=== PATIENT | female | born 1990 ===

== ENCOUNTER 2020-05-01 00:34 | Inpatient (IN) | payer MEDICAID ==
[2020-05-01] MEDS ORDERED: Ondansetron 4 MG/2 ML SDV IVPUSH PRN (01:06)
[2020-05-01] MEDS ORDERED: Sodium Chloride 0.9% 10 ML SDV IV PRN (01:06)
[2020-05-01] MEDS ORDERED: Misoprostol 200 MCG Tab PO PRN (01:06)
[2020-05-01] MEDS ORDERED: Lidocaine 1% 50 ML MDV INJECT PRN (01:06)
[2020-05-01] MEDS ORDERED: Nalbuphine 10 MG/1 ML Vial IVPUSH PRN (01:06)
[2020-05-01] MEDS ORDERED: Sodium Chloride 0.9% 10 ML Syringe FLUSH PRN (01:06)
[2020-05-01] MEDS ORDERED: Terbutaline 1 MG/ML SDV SUBCUT PRN (01:06)
[2020-05-01] MEDS ORDERED: Tranexamic Acid 1,000 MG in Sodium Chloride 0.9% 100 ML IV PRN (01:06)
[2020-05-01] MEDS ORDERED: Sodium Chloride 0.9% 2.5 ML Syringe FLUSH PRN (01:06)
[2020-05-01] MEDS ORDERED: Water For Irrigation,Sterile 1,000 ML Container IRR PRN (01:06)
[2020-05-01] MEDS ORDERED: Butorphanol 1 MG/ML SDV IVPUSH PRN (01:06)
[2020-05-01] MEDS ORDERED: Methylergonovine 0.2 MG/1 ML Amp IM PRN (01:06)
[2020-05-01] MEDS ORDERED: Carboprost Tromethamine 250 MCG/1 ML Amp IM PRN (01:06)
[2020-05-01] MEDS ORDERED: Oxytocin/0.9 % Sodium Chloride 30 UNIT/500 ML BAG IV SCH ×2 (01:15)
[2020-05-01] MEDS: Lactated Ringers 1,000 ML IV SCH ×3 (03:22→07:26)
--- NOTE | 2020-05-01 03:31 | PCM.PREANE ---
Preanesthetic Assessment - Anesthesia/Transfusion/Family Hx Anesthesia History: No Prior Anesthesia Family History of Anesthesia Reaction: No - Review of Systems General: No Symptoms Pulmonary: No Symptoms Cardiovascular: No Symptoms Gastrointestinal: No Symptoms Neurological: No Symptoms Other: Reports: None - Physical Assessment NPO Status Date: 05/01/20 NPO Status Time: 03:30 (water) Height: 1.63 m Weight: 86.636 kg ASA Class: 2 Mental Status: Alert & Oriented x3 Airway Class: Mallampati = 2 Dentition: Reports: Normal Dentition Thyro-Mental Finger Breadths: 3 Mouth Opening Finger Breadths: 3 ROM/Head Extension: Full Lungs: Clear to Auscultation, Normal Respiratory Effort Cardiovascular: Regular Rate, Regular Rhythm - Lab Values: Laboratory Last Values WBC 11.74 K/uL (4.0-11.0) H 05/01/20 01:50 RBC 4.19 M/uL (4.30-5.90) L 05/01/20 01:50 Hgb 12.9 g/dL (12.0-16.0) 05/01/20 01:50 Hct 38.0 % (36.0-46.0) 05/01/20 01:50 MCV 90.7 fL (80.0-98.0) 05/01/20 01:50 MCH 30.8 pg (27.0-32.0) 05/01/20 01:50 MCHC 33.9 g/dL (31.0-37.0) 05/01/20 01:50 RDW Std Deviation 40.0 fl (28.0-62.0) 05/01/20 01:50 RDW Coeff of Maria Isabel 12 % (11.0-15.0) 05/01/20 01:50 Plt Count 202 K/uL (150-400) 05/01/20 01:50 MPV 9.70 fL (7.40-12.00) 05/01/20 01:50 SARS-CoV-2 RNA (JONNY) NEGATIVE (NEGATIVE) 05/01/20 00:41 Blood Type A POSITIVE 05/01/20 01:50 Antibody Screen NEGATIVE 05/01/20 01:50 - Allergies Allergies/Adverse Reactions: Allergies Allergy/AdvReac Type Severity Reaction Status Date / Time azithromycin Allergy Rash Verified 05/01/20 01:04 cefaclor [From [facility]] Allergy Rash Verified 05/01/20 01:05 - Acknowledgements Anesthesia Type Planned: Epidural (risks and benefits of epidural discussed. patient understands and agrees to proceed. consent signed. 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 Right knee cap dislocation - SUBSTANCE USE Tobacco Use Status *Q: Never Tobacco User Second Hand Smoke Exposure: No Recreational Drug Use History: No - CURRENT (IN HOUSE) MEDS Current Meds: Current Medications Butorphanol Tartrate (Stadol) 1 mg IVPUSH Q1H PRN PRN Reason: Pain Carboprost Tromethamine (Hemabate Ds) 250 mcg IM ASDIRECTED PRN PRN Reason: Post Hemorrhage Lactated Ringer's (Ringers, Lactated) 1,000 mls @ 150 mls/hr IV ASDIRECTED DANK Oxytocin/Sodium Chloride (Oxytocin 30 Unit/500 Ml-Ns) 30 unit in 500 mls @ 999 mls/hr IV TITRATE DANK Tranexamic Acid 1,000 mg/ (Sodium Chloride) 110 mls @ 660 mls/hr IV ONETIME PRN PRN Reason: Bleeding Oxytocin/Sodium Chloride (Oxytocin 30 Unit/500 Ml-Ns) 30 unit in 500 mls @ 2 mls/hr IV TITRATE DANK; Protocol Lidocaine HCl (Xylocaine 1%) 50 ml INJECT ONETIME PRN PRN Reason: Laceration repair Methylergonovine Maleate (Methergine) 0.2 mg IM ASDIRECTED PRN PRN Reason: Post Hemorrhage Misoprostol (Cytotec) 200 mcg PO ONETIME PRN PRN Reason: Post Hemorrhage Nalbuphine HCl (Nubain) 10 mg IVPUSH Q1H PRN PRN Reason: Pain (severe 7-10) Ondansetron HCl (Zofran) 4 mg IVPUSH Q4H PRN PRN Reason: Nausea/Vomiting Sodium Chloride (Saline Flush) 10 ml FLUSH ASDIRECTED PRN PRN Reason: Keep Vein Open Sodium Chloride (Saline Flush) 2.5 ml FLUSH ASDIRECTED PRN PRN Reason: Keep Vein Open Sodium Chloride (Normal Saline) 10 ml IV ASDIRECTED PRN PRN Reason: IV Use Sterile Water (Sterile Water For Irrigation) 1,000 ml IRR ASDIRECTED PRN PRN Reason: delivery Terbutaline Sulfate (Brethine) 0.25 mg SUBCUT ASDIRECTED PRN PRN Reason: Tacysystole
[2020-05-01] MEDS ORDERED: Ropivacaine HCl/PF 100 ML ONE (03:48)
[2020-05-01] MEDS ORDERED: fentaNYL 100 MCG/2 ML SDV ONE (05:14)
--- NOTE | 2020-05-01 05:39 | PCM.SN.2 ---
- Free Text/Narrative Note: Patient in sitting position for epidural. Epidural done with a sterile technique. Back prepped with chlorhexidine and draped. 1% lidocaine 5 ml used. and then 1% lidocaine 3 ml used at same level. 3 attempts made by me at L3-L4. Unsuccessful. Called Dr. Bahena, back prepped with chlorhexidine. 1% lidocaine 5ml for skin infiltration. 17 gauge touhy used with brigitte at 6.5 cm. epidural catheter threaded easily without paresthesias. aspiration of the catheter is negative for blood and csf. 05:03 test dose done 1.5% lidocaine with epinephrine 3ml was negative. 05:08 1.5% lidocaine with epinephrine 2 ml bolus. patient comfortable. The patient was able to communicate throughout the entire procedure.
--- NOTE | 2020-05-01 08:05 | PCM.LDHP ---
L&D History of Present Illness - General Date of Service: 05/01/20 Admit Problem/Dx: Patient Status Order with Admit Dx/Problem 05/01/20 01:08 Patient Status [ADT] Routine Admission Diagnosis/Problem Admission Diagnosis/Problem 05/01/20 08:00 at 38 6/7 weeks (KEILA: 05/09/20) presenting to L&D with grossly ruptured membranes; A+, RI, GBS negative; SVE per nurse report: 4cm; vertex presentation by Juarez; marlene every 5-7 minutes Source of Information: Patient History Limitations: Reports: No Limitations - Related Data Allergies/Adverse Reactions: Allergies Allergy/AdvReac Type Severity Reaction Status Date / Time azithromycin Allergy Rash Verified 05/01/20 01:04 cefaclor [From Ceclor] Allergy Rash Verified 05/01/20 01:05 Past Medical History HEENT History: Reports: Impaired Vision Other HEENT History: glasses Cardiovascular History: Reports: None Respiratory History: Reports: None Gastrointestinal History: Reports: None Genitourinary History: Reports: None 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 Right knee cap dislocation Social & Family History - Family History Family Medical History: Noncontributory - Tobacco Use Tobacco Use Status *Q: Never Tobacco User Second Hand Smoke Exposure: No - Caffeine Use Caffeine Use: Reports: Soda - Recreational Drug Use Recreational Drug Use: No H&P Review of Systems - Review of Systems: Review Of Systems: See Below General: Reports: No Symptoms HEENT: Reports: No Symptoms Pulmonary: Reports: No Symptoms Cardiovascular: Reports: No Symptoms Gastrointestinal: Reports: No Symptoms Genitourinary: Reports: No Symptoms Musculoskeletal: Reports: No Symptoms Skin: Reports: No Symptoms Psychiatric: Reports: No Symptoms Neurological: Reports: No Symptoms Hematologic/Lymphatic: Reports: No Symptoms Immunologic: Reports: No Symptoms L&D Exam - Exam Exam: See Below - Vital Signs Weight: 191 lb - OB Specific Movement: Active Heart Tones: Present Heart Rate (FHR) Variability: Moderate (6-25 bmp) Presentation: Vertex - Anne Score Anne Score Cervix Position: Midposition Anne Score Consistency: Soft Anne Score Effacement: >80% Anne Score Dilation: 3-4 cm Anne Score 's Station: -3 Anne Score Total: 8 - Exam General: Alert, Oriented, Cooperative Lungs: Normal Respiratory Effort Cardiovascular: Regular Rate, Regular Rhythm GI/Abdominal Exam: Soft, Non-Tender Rectal Exam: Deferred Genitourinary: Deferred Back Exam: Normal Inspection Extremities: Non-Tender, Normal Capillary Refill Skin: Warm, Dry, Intact Neurological: Normal Speech, Normal Tone Psychiatric: Alert, Normal Affect, Normal Mood - Patient Data Lab Results Last 24 hrs: Laboratory Results - last 24 hr 05/01/20 05/01/20 05/01/20 Range/Units 00:41 01:50 01:50 WBC 11.74 H (4.0-11.0) K/uL RBC 4.19 L (4.30-5.90) M/uL Hgb 12.9 (12.0-16.0) g/dL Hct 38.0 (36.0-46.0) % MCV 90.7 (80.0-98.0) fL MCH 30.8 (27.0-32.0) pg MCHC 33.9 (31.0-37.0) g/dL RDW Std Deviation 40.0 (28.0-62.0) fl RDW Coeff of Maria Isabel 12 (11.0-15.0) % Plt Count 202 (150-400) K/uL MPV 9.70 (7.40-12.00) fL SARS-CoV-2 RNA (JONNY) NEGATIVE (NEGATIVE) Blood Type A POSITIVE Antibody Screen NEGATIVE Result Diagrams: 05/01/20 01:50 - Problem List (1) Supervision of normal IUP (intrauterine ) in multigravida SNOMED Code(s): 013153066, 106846513, 271452227 ICD Code: Z34.80 - ENCOUNTER FOR SUPRVSN OF NORMAL , UNSP TRIMESTER Status: Acute Priority: High Current Visit: Yes Qualifiers: Trimester: third trimester Qualified Code(s): Z34.83 - Encounter for supervision of other normal , third trimester Problem List Initiated/Reviewed/Updated: Yes Orders Last 24hrs: Active Orders 24 hr Category Date Time Status Patient Status [ADT] Routine ADT 05/01/20 01:08 Active Bedrest Bathroom Privileges [RC] ASDIRECTED Care 05/01/20 01:08 Active Communication Order [RC] ASDIRECTED Care 05/01/20 01:08 Active Communication Order [RC] ASDIRECTED Care 05/01/20 01:08 Active Heart Tones [RC] CONTINUOUS Care 05/01/20 01:08 Active Non Stress Test [RC] PER UNIT ROUTINE Care 05/01/20 01:08 Active May Shower [RC] ASDIRECTED Care 05/01/20 01:08 Active Notify Provider [RC] PRN Care 05/01/20 01:08 Active Notify Provider [RC] PRN Care 05/01/20 01:08 Active Oxygen Therapy [RC] ASDIRECTED Care 05/01/20 01:08 Active Up ad Rosi [RC] ASDIRECTED Care 05/01/20 01:08 Active Vaginal Exam [RC] PRN Care 05/01/20 01:08 Active Vaginal Exam [RC] PRN Care 05/01/20 01:08 Active Vital Signs [RC] PER UNIT ROUTINE Care 05/01/20 01:08 Active Clear Liquid Diet [DIET] Diet 05/01/20 Lunch Active RPR (SYPHILIS SERO) W/ RFLX [REF] Routine Lab 05/01/20 01:50 Received Butorphanol [Stadol] Med 05/01/20 01:06 Active 1 mg IVPUSH Q1H PRN Carboprost Tromethamine [Hemabate DS] Med 05/01/20 01:06 Active 250 mcg IM ASDIRECTED PRN Lactated Ringers [Ringers, Lactated] 1,000 ml Med 05/01/20 01:15 Active IV ASDIRECTED Lidocaine 1% [Xylocaine 1%] Med 05/01/20 01:06 Active 50 ml INJECT ONETIME PRN Methylergonovine [Methergine] Med 05/01/20 01:06 Active 0.2 mg IM ASDIRECTED PRN Nalbuphine [Nubain] Med 05/01/20 01:06 Active 10 mg IVPUSH Q1H PRN Ondansetron [Zofran] Med 05/01/20 01:06 Active 4 mg IVPUSH Q4H PRN Oxytocin/0.9 % Sodium Chloride [Oxytocin 30 Unit/500 ML Med 05/01/20 01:15 Active -NS] 30 unit in 500 ml IV TITRATE Oxytocin/0.9 % Sodium Chloride [Oxytocin 30 Unit/500 ML Med 05/01/20 01:15 Active -NS] 30 unit in 500 ml IV TITRATE Sodium Chloride 0.9% [Normal Saline] Med 05/01/20 01:06 Active 10 ml IV ASDIRECTED PRN Sodium Chloride 0.9% [Saline Flush] Med 05/01/20 01:06 Active 10 ml FLUSH ASDIRECTED PRN Sodium Chloride 0.9% [Saline Flush] Med 05/01/20 01:06 Active 2.5 ml FLUSH ASDIRECTED PRN Terbutaline [Brethine] Med 05/01/20 01:06 Active 0.25 mg SUBCUT ASDIRECTED PRN Tranexamic Acid [Cyklokapron] 1,000 mg Med 05/01/20 01:06 Active Sodium Chloride 0.9% [Normal Saline] 100 ml IV ONETIME Water For Irrigation,Sterile [Sterile Water for Med 05/01/20 01:06 Active Irrigation] 1,000 ml IRR ASDIRECTED PRN miSOPROStoL [Cytotec] Med 05/01/20 01:06 Active 200 mcg PO ONETIME PRN Scalp Electrode [WOMSER] Per Unit Routine Oth 05/01/20 01:08 Ordered Medication Administration Instruction [OM.PC] Q3H Oth 05/01/20 01:15 Ordered Peripheral IV Insertion Adult [OM.PC] Routine Oth 05/01/20 01:08 Ordered Resuscitation Status Routine Resus Stat 05/01/20 01:06 Ordered Medication Orders Butorphanol Tartrate (Stadol) 1 mg IVPUSH Q1H PRN PRN Reason: Pain Carboprost Tromethamine (Hemabate Ds) 250 mcg IM ASDIRECTED PRN PRN Reason: Post Hemorrhage Lactated Ringer's (Ringers, Lactated) 1,000 mls @ 150 mls/hr IV ASDIRECTED DANK Last Admin: 05/01/20 07:26 Dose: 125 mls/hr Documented by: Infusion: 05/01/20 07:26 Dose: 125 mls/hr Documented by: Infusion: 05/01/20 05:42 Dose: 125 mls/hr Documented by: Admin: 05/01/20 04:22 Dose: 550 mls/hr Documented by: Infusion: 05/01/20 04:22 Dose: 999 mls/hr Documented by: Admin: 05/01/20 03:22 Dose: 999 mls/hr Documented by: ELISE Oxytocin/Sodium Chloride (Oxytocin 30 Unit/500 Ml-Ns) 30 unit in 500 mls @ 999 mls/hr IV TITRATE DANK Tranexamic Acid 1,000 mg/ (Sodium Chloride) 110 mls @ 660 mls/hr IV ONETIME PRN PRN Reason: Bleeding Oxytocin/Sodium Chloride (Oxytocin 30 Unit/500 Ml-Ns) 30 unit in 500 mls @ 2 mls/hr IV TITRATE DANK; Protocol Lidocaine HCl (Xylocaine 1%) 50 ml INJECT ONETIME PRN PRN Reason: Laceration repair Last Admin: 05/01/20 04:20 Dose: 50 ml Documented by: ELISE Methylergonovine Maleate (Methergine) 0.2 mg IM ASDIRECTED PRN PRN Reason: Post Hemorrhage Misoprostol (Cytotec) 200 mcg PO ONETIME PRN PRN Reason: Post Hemorrhage Nalbuphine HCl (Nubain) 10 mg IVPUSH Q1H PRN PRN Reason: Pain (severe 7-10) Ondansetron HCl (Zofran) 4 mg IVPUSH Q4H PRN PRN Reason: Nausea/Vomiting Last Admin: 05/01/20 07:26 Dose: 4 mg Documented by: LEXIS Sodium Chloride (Saline Flush) 10 ml FLUSH ASDIRECTED PRN PRN Reason: Keep Vein Open Sodium Chloride (Saline Flush) 2.5 ml FLUSH ASDIRECTED PRN PRN Reason: Keep Vein Open Sodium Chloride (Normal Saline) 10 ml IV ASDIRECTED PRN PRN Reason: IV Use Sterile Water (Sterile Water For Irrigation) 1,000 ml IRR ASDIRECTED PRN PRN Reason: delivery Terbutaline Sulfate (Brethine) 0.25 mg SUBCUT ASDIRECTED PRN PRN Reason: Tacysystole Assessment/Plan Comment:: Admit A: at 38 6/7 weeks (KEILA: 05/09/20) presenting to L&D with grossly ruptured membranes; A+, RI, GBS negative; SVE per nurse report: 4cm; vertex presentation by Cedric'charity; marlene every 5-7 minutes P: Anticipate ; epidural PRN; pitocin PRN; Dr. Candie prescott
--- NOTE | 2020-05-01 11:19 | PCM.DEL ---
L & D Note - General Info Date of Service: 05/01/20 Mother's Due Date: 05/09/20 - Delivery Note Labor: Spontaneous Delivery Outcome: Livebirth Presentation: Vertex Nuchal Cord: None Anesthesia Type: Epidural Episiotomy Type: None Laceration: None Placenta: Intact, Spontaneous Cord: 3 Vessels Estimated Blood Loss: 300 : Suctioned, Bulb Syringe, Stimulated, Warmed Score 1 min: 7 Score 5 min: 9 Second Stage Interventions: Reports: Encouragement Given, Pushing Effectively Delivery Comments (Free Text/Narrative):: viable female; epidural for pain relief; head delivered with good pushing, shoulders and body followed easily after; no nuchal; baby to mom's abdomen [id number] for assessment; APGARs 7/9; cord doubly clamped, cut by FOB at approximately 2 minutes; baby to warmer for further assessment; rand maker in to assess infant; placenta delivered grossly intact, duggan, 3VC; EBL 300 mL; perineum intact; pitocin to IVF; baby's weight: 8 lb 8 oz (3860 grams); mom and baby left in stable condition with nurse at bedside for assessment - General Info Date of Service: 05/01/20 Admission Dx/Problem (Free Text): Patient Status Order with Admit Dx/Problem 05/01/20 01:08 Patient Status [ADT] Routine Admission Diagnosis/Problem Admission Diagnosis/Problem 05/01/20 08:00 at 38 6/7 weeks (KEILA: 05/09/20) presenting to L&D with grossly ruptured membranes; A+, RI, GBS negative; SVE per nurse report: 4cm; vertex presentation by Cedric'charity; marlene every 5-7 minutes Functional Status: Reports: Pain Controlled - Review of Systems General: Reports: No Symptoms HEENT: Reports: No Symptoms Pulmonary: Reports: No Symptoms Cardiovascular: Reports: No Symptoms Gastrointestinal: Reports: No Symptoms Genitourinary: Reports: No Symptoms Musculoskeletal: Reports: No Symptoms Skin: Reports: No Symptoms Neurological: Reports: No Symptoms Psychiatric: Reports: No Symptoms - Patient Data Weight - Most Recent: 191 lb I&O - Last 24 Hours: Intake & Output 04/30/20 05/01/20 05/01/20 22:59 06:59 14:59 Output Total 400 Balance -400 Lab Results Last 24 Hours: Laboratory Results - last 24 hr 05/01/20 05/01/20 05/01/20 Range/Units 00:41 01:50 01:50 WBC 11.74 H (4.0-11.0) K/uL RBC 4.19 L (4.30-5.90) M/uL Hgb 12.9 (12.0-16.0) g/dL Hct 38.0 (36.0-46.0) % MCV 90.7 (80.0-98.0) fL MCH 30.8 (27.0-32.0) pg MCHC 33.9 (31.0-37.0) g/dL RDW Std Deviation 40.0 (28.0-62.0) fl RDW Coeff of Maria Isabel 12 (11.0-15.0) % Plt Count 202 (150-400) K/uL MPV 9.70 (7.40-12.00) fL SARS-CoV-2 RNA (JONNY) NEGATIVE (NEGATIVE) Blood Type A POSITIVE Antibody Screen NEGATIVE Med Orders - Current: Current Medications Butorphanol Tartrate (Stadol) 1 mg IVPUSH Q1H PRN PRN Reason: Pain Carboprost Tromethamine (Hemabate Ds) 250 mcg IM ASDIRECTED PRN PRN Reason: Post Hemorrhage Lactated Ringer's (Ringers, Lactated) 1,000 mls @ 150 mls/hr IV ASDIRECTED DANK Last Admin: 05/01/20 07:26 Dose: 125 mls/hr Documented by: Oxytocin/Sodium Chloride (Oxytocin 30 Unit/500 Ml-Ns) 30 unit in 500 mls @ 999 mls/hr IV TITRATE DANK Tranexamic Acid 1,000 mg/ (Sodium Chloride) 110 mls @ 660 mls/hr IV ONETIME PRN PRN Reason: Bleeding Oxytocin/Sodium Chloride (Oxytocin 30 Unit/500 Ml-Ns) 30 unit in 500 mls @ 2 mls/hr IV TITRATE DANK; Protocol Last Titration: 05/01/20 09:56 Dose: 1 munits/min, 1 mls/hr Documented by: Lidocaine HCl (Xylocaine 1%) 50 ml INJECT ONETIME PRN PRN Reason: Laceration repair Last Admin: 05/01/20 04:20 Dose: 50 ml Documented by: Methylergonovine Maleate (Methergine) 0.2 mg IM ASDIRECTED PRN PRN Reason: Post Hemorrhage Misoprostol (Cytotec) 200 mcg PO ONETIME PRN PRN Reason: Post Hemorrhage Nalbuphine HCl (Nubain) 10 mg IVPUSH Q1H PRN PRN Reason: Pain (severe 7-10) Ondansetron HCl (Zofran) 4 mg IVPUSH Q4H PRN PRN Reason: Nausea/Vomiting Last Admin: 05/01/20 07:26 Dose: 4 mg Documented by: Sodium Chloride (Saline Flush) 10 ml FLUSH ASDIRECTED PRN PRN Reason: Keep Vein Open Sodium Chloride (Saline Flush) 2.5 ml FLUSH ASDIRECTED PRN PRN Reason: Keep Vein Open Sodium Chloride (Normal Saline) 10 ml IV ASDIRECTED PRN PRN Reason: IV Use Sterile Water (Sterile Water For Irrigation) 1,000 ml IRR ASDIRECTED PRN PRN Reason: delivery Terbutaline Sulfate (Brethine) 0.25 mg SUBCUT ASDIRECTED PRN PRN Reason: Tacysystole Discontinued Medications Fentanyl (Sublimaze) Confirm Administered Dose 200 mcg .ROUTE .STK-MED ONE Stop: 05/01/20 05:15 Ropivacaine (Naropin 0.2%) Confirm Administered Dose 100 mls @ as directed .ROUTE .STK-MED ONE Stop: 05/01/20 03:49 - Exam General: Alert, Oriented, Cooperative, No Acute Distress Lungs: Normal Respiratory Effort Cardiovascular: Regular Rate, Regular Rhythm GI/Abdominal Exam: Soft, Non-Tender (Female) Exam: Deferred Back Exam: Normal Inspection Extremities: Normal Inspection, Non-Tender, Normal Capillary Refill Skin: Warm, Dry, Intact Neurological: No New Focal Deficit, Normal Speech Psy/Mental Status: Alert, Normal Affect, Normal Mood - Problem List & Annotations (1) Supervision of normal IUP (intrauterine ) in multigravida SNOMED Code(s): 901787847, 297079602, 597435055 Code(s): Z34.80 - ENCOUNTER FOR SUPRVSN OF NORMAL , UNSP TRIMESTER Status: Acute Priority: High Current Visit: Yes Qualifiers: Trimester: third trimester Qualified Code(s): Z34.83 - Encounter for supervision of other normal , third trimester (2) (spontaneous vaginal delivery) SNOMED Code(s): 962917021 Code(s): O80 - ENCOUNTER FOR FULL-TERM UNCOMPLICATED DELIVERY Status: Acute Current Visit: Yes - Problem List Review Problem List Initiated/Reviewed/Updated: Yes - Plan Plan:: Admit A: at 38 6/7 weeks (KEILA: 05/09/20) presenting to L&D with grossly ruptured membranes; A+, RI, GBS negative; SVE per nurse report: 4cm; vertex presentation by Cedric's; marlene every 5-7 minutes P: Anticipate ; epidural PRN; pitocin PRN; Dr. Schreiber updated Delivery A: viable female; epidural for pain relief; APGARs 7/9; cord doubly clamped, cut by FOB at approximately 2 minutes; baby to warmer for further assessment; rand maker in to assess ; placenta delivered grossly intact, duggan, 3VC; EBL 300 mL; perineum intact; pitocin to IVF; baby's weight: 8 lb 8 oz (3860 grams); mom and baby left in stable condition with nurse at bedside for assessment P: Routine plan of care; Dr. Schreiber updated.
[2020-05-01] MEDS ORDERED: Lanolin 100% Cream 7 GM Tube TOP PRN (11:20)
[2020-05-01] MEDS ORDERED: oxyCODONE 5 MG Tab PO PRN (11:20)
[2020-05-01] MEDS ORDERED: Bisacodyl 10 MG Supp RECTAL PRN (11:20)
[2020-05-01] MEDS ORDERED: Docusate Sodium 100 MG Cap PO PRN (11:20)
[2020-05-01] MEDS ORDERED: Benzocaine/Menthol 20%-0.5% Spray 78 GM Cannister TOP PRN (11:20)
[2020-05-01] MEDS ORDERED: Ibuprofen 400 MG Tab PO PRN (11:20)
[2020-05-01] MEDS ORDERED: Witch Hazel Medicated Pads 40/Jar TOP PRN (11:20)
[2020-05-01] MEDS ORDERED: Acetaminophen 500 MG Tab PO PRN (11:20)
[2020-05-01] MEDS: Ibuprofen 800 MG Tab PO PRN (12:32)
[2020-05-01] MEDS: Acetaminophen 500 MG Tab PO PRN (15:52)
--- NOTE | 2020-05-02 08:09 | PCM.DCSUM1 ---
Discharge Summary - Hospital Course Free Text/Narrative:: Discharge home with baby; follow up in the clinic in six weeks for routine visit; sooner, if needed. Diagnosis: Stroke: No Modified Austin Scale: No Symptoms at All Modified Rich Scale Score: 0 - Discharge Data Discharge Date: 05/02/20 Discharge Disposition: Home, Self-Care 01 Condition: Good - Referral to Home Health Primary Care Physician: Katlyn Garcia NP - Discharge Diagnosis/Problem(s) (1) Supervision of normal IUP (intrauterine ) in multigravida SNOMED Code(s): 184260701, 902141208, 941118136 ICD Code: Z34.80 - ENCOUNTER FOR SUPRVSN OF NORMAL , UNSP TRIMESTER Status: Acute Priority: High Current Visit: Yes Qualifiers: Trimester: third trimester Qualified Code(s): Z34.83 - Encounter for supervision of other normal , third trimester (2) (spontaneous vaginal delivery) SNOMED Code(s): 208081538 ICD Code: O80 - ENCOUNTER FOR FULL-TERM UNCOMPLICATED DELIVERY Status: Acute Priority: High Current Visit: Yes - Patient Instructions Diet: Usual Diet as Tolerated, Regular Diet as Tolerated, Drink 8-10+ Glasses/Day Activity: As Tolerated, No Strenuous Activities, Rest and Relax Today Driving: May Drive Today Showering/Bathing: May Shower Notify Provider of: Fever, Increased Pain, Swelling and Redness, Drainage, Nausea and/or Vomiting - Discharge Plan *PRESCRIPTION DRUG MONITORING PROGRAM REVIEWED*: Not Applicable *COPY OF PRESCRIPTION DRUG MONITORING REPORT IN PATIENT BRIDGER: Not Applicable Oxygen Therapy Mode: Room Air Referrals: [facility] [Outside] Samantha Perez CNM, DIRECTOR OF MARKETING [Mid-] - 06/12/20 2:00 pm - Discharge Summary/Plan Comment DC Time >30 min.: Yes - General Info Date of Service: 05/02/20 Admission Dx/Problem (Free Text: Patient Status Order with Admit Dx/Problem 05/01/20 01:08 Patient Status [ADT] Routine Admission Diagnosis/Problem Admission Diagnosis/Problem 05/01/20 08:00 at 38 6/7 weeks (KEILA: 05/09/20) presenting to L&D with grossly ruptured membranes; A+, RI, GBS negative; SVE per nurse report: 4cm; vertex presentation by Juarez; marlene every 5-7 minutes Functional Status: Reports: Pain Controlled, Tolerating Diet, Ambulating, Urinating - Review of Systems General: Reports: No Symptoms HEENT: Reports: No Symptoms Pulmonary: Reports: No Symptoms Cardiovascular: Reports: No Symptoms Gastrointestinal: Reports: No Symptoms Genitourinary: Reports: No Symptoms Musculoskeletal: Reports: No Symptoms Skin: Reports: No Symptoms Neurological: Reports: No Symptoms Psychiatric: Reports: No Symptoms - Patient Data Vitals - Most Recent: Last Vital Signs Temp 96.8 F L 05/02/20 04:30 Pulse 77 05/02/20 04:30 Resp 15 05/02/20 04:30 BP 107/64 05/02/20 04:30 Pulse Ox 97 05/02/20 04:30 Weight - Most Recent: 191 lb Lab Results - Last 24 hrs: Laboratory Results - last 24 hr 05/02/20 Range/Units 05:34 Hgb 11.1 L (12.0-16.0) g/dL Hct 34.0 L (36.0-46.0) % Med Orders - Current: Current Medications Acetaminophen (Tylenol Extra Strength) 500 mg PO Q4H PRN PRN Reason: Pain Acetaminophen (Tylenol Extra Strength) 1,000 mg PO Q4H PRN PRN Reason: Pain Last Admin: 05/01/20 15:52 Dose: 1,000 mg Documented by: Benzocaine/Menthol (Dermoplast Pain Relief 20%-0.5% Cutler) 78 gm TOP ASDIRECTED PRN PRN Reason: Perineal Comfort Measure Last Admin: 05/01/20 12:31 Dose: 1 container Documented by: Bisacodyl (Dulcolax) 10 mg RECTAL ONETIME PRN PRN Reason: Constipation Docusate Sodium (Colace) 100 mg PO BID PRN PRN Reason: Constipation Emollient Ointment (Lansinoh Hpa) 0 gm TOP ASDIRECTED PRN PRN Reason: Sore Nipples Last Admin: 05/01/20 12:32 Dose: 7 gm Documented by: Ibuprofen (Motrin) 400 mg PO Q4H PRN PRN Reason: Pain Ibuprofen (Motrin) 800 mg PO Q6H PRN PRN Reason: Pain Last Admin: 05/01/20 12:32 Dose: 800 mg Documented by: Oxycodone HCl (Oxycodone) 5 mg PO Q2H PRN PRN Reason: Pain Last Admin: 05/01/20 15:53 Dose: 5 mg Documented by: Wilian Ortega (Fide) 1 pad TOP ASDIRECTED PRN PRN Reason: comfort care Last Admin: 05/01/20 12:33 Dose: 1 container Documented by: Discontinued Medications Butorphanol Tartrate (Stadol) 1 mg IVPUSH Q1H PRN PRN Reason: Pain Carboprost Tromethamine (Hemabate Ds) 250 mcg IM ASDIRECTED PRN PRN Reason: Post Hemorrhage Fentanyl (Sublimaze) Confirm Administered Dose 200 mcg .ROUTE .STK-MED ONE Stop: 05/01/20 05:15 Lactated Ringer's (Ringers, Lactated) 1,000 mls @ 150 mls/hr IV ASDIRECTED DANK Last Infusion: 05/01/20 10:58 Dose: 0 mls/hr Documented by: Oxytocin/Sodium Chloride (Oxytocin 30 Unit/500 Ml-Ns) 30 unit in 500 mls @ 999 mls/hr IV TITRATE DANK Tranexamic Acid 1,000 mg/ (Sodium Chloride) 110 mls @ 660 mls/hr IV ONETIME PRN PRN Reason: Bleeding Oxytocin/Sodium Chloride (Oxytocin 30 Unit/500 Ml-Ns) 30 unit in 500 mls @ 2 mls/hr IV TITRATE DANK; Protocol Last Titration: 05/01/20 11:41 Dose: Infused Documented by: Ropivacaine (Naropin 0.2%) Confirm Administered Dose 100 mls @ as directed .ROUTE .STK-MED ONE Stop: 05/01/20 03:49 Lidocaine HCl (Xylocaine 1%) 50 ml INJECT ONETIME PRN PRN Reason: Laceration repair Last Admin: 05/01/20 04:20 Dose: 50 ml Documented by: Methylergonovine Maleate (Methergine) 0.2 mg IM ASDIRECTED PRN PRN Reason: Post Hemorrhage Misoprostol (Cytotec) 200 mcg PO ONETIME PRN PRN Reason: Post Hemorrhage Nalbuphine HCl (Nubain) 10 mg IVPUSH Q1H PRN PRN Reason: Pain (severe 7-10) Ondansetron HCl (Zofran) 4 mg IVPUSH Q4H PRN PRN Reason: Nausea/Vomiting Last Admin: 05/01/20 07:26 Dose: 4 mg Documented by: Sodium Chloride (Saline Flush) 10 ml FLUSH ASDIRECTED PRN PRN Reason: Keep Vein Open Sodium Chloride (Saline Flush) 2.5 ml FLUSH ASDIRECTED PRN PRN Reason: Keep Vein Open Sodium Chloride (Normal Saline) 10 ml IV ASDIRECTED PRN PRN Reason: IV Use Sterile Water (Sterile Water For Irrigation) 1,000 ml IRR ASDIRECTED PRN PRN Reason: delivery Terbutaline Sulfate (Brethine) 0.25 mg SUBCUT ASDIRECTED PRN PRN Reason: Tacysystole - Exam General: Reports: Alert, Oriented, Cooperative, No Acute Distress Lungs: Reports: Normal Respiratory Effort Cardiovascular: Reports: Regular Rate, Regular Rhythm GI/Abdominal Exam: Soft, Non-Tender (Female) Exam: Deferred Rectal (Female) Exam: Deferred Back Exam: Reports: Normal Inspection, Full Range of Motion Extremities: Normal Inspection, Normal Range of Motion, Non-Tender, Normal Capillary Refill Skin: Reports: Warm, Dry, Intact Neurological: Reports: No New Focal Deficit, Normal Gait, Normal Speech, Normal Tone, Sensation Intact Psy/Mental Status: Reports: Alert, Normal Affect, Normal Mood
[2020-05-02] MEDS: Ibuprofen 800 MG Tab PO PRN (09:30)
[2020-05-02] MEDS: Acetaminophen 500 MG Tab PO PRN (09:30)
--- NOTE | 2020-05-02 10:09 | PCM48HPAN ---
Post Anesthesia Note - EVALUATION WITHIN 48HRS OF ANESTHETIC Vital Signs in Normal Range: Yes Patient Participated in Evaluation: Yes Respiratory Function Stable: Yes Airway Patent: Yes Cardiovascular Function Stable: Yes Hydration Status Stable: Yes Pain Control Satisfactory: Yes (Reports 0/10 pain at rest, 4/10 with movement. Adequate pain control.) Nausea and Vomiting Control Satisfactory: Yes (Denies nausea/vomiting) Mental Status Recovered: Yes Vital Signs: Last Vital Signs Temp 36.9 C 05/02/20 07:55 Pulse 93 05/02/20 07:55 Resp 16 05/02/20 07:55 BP 112/73 05/02/20 07:55 Pulse Ox 96 05/02/20 07:55 - COMMENTS/OBSERVATIONS Free Text/Narrative:: Ambulating without difficulty. Reports full return of strength and sensation to BLE.
== END 2020-05-02 14:13 | disposition home or self-care (01) | DRG 807 ==
LOC: MW.OBCHECK 00:34 → MW.OB 00:35 → MW.OBCHECK 01:08 → OBSVTOIN 10:55 → MW.OB 14:00
PROVIDERS: ADMIT Obstetrics & Gynecology; ATTEND Obstetrics & Gynecology
PROC: 10E0XZZ Delivery of Products of Conception, External Approach (ICD-10-PCS; principal; 2020-05-01)
PROC: 3E0S3BZ Introduction of Anesthetic Agent into Epidural Space, Percutaneous Approach (ICD-10-PCS; 2020-05-01)
PROC: 00HU33Z Insertion of Infusion Device into Spinal Canal, Percutaneous Approach (ICD-10-PCS; 2020-05-01)
DX: O99.214 Obesity complicating childbirth (principal); Z37.0 Single live birth; E66.9 Obesity, unspecified; Z3A.38 38 weeks gestation of pregnancy; Z20.828 Contact with and (suspected) exposure to other viral communicable diseases
CPT/HCPCS: 36415; 51702; 59025; 59409; 85014; 85018; 85027; 86592; 86850; 86900; 86901; A9270-GY; J2001; J2405; J2590; J7120; U0002